=== PATIENT | male | born 1950 | race African-American/Black ===

== ENCOUNTER 2017-07-10 14:46 | Emergency (ER) | payer BC, OTHER ==
[2017-07-10 15:09] VITALS: BP 150/94; PULSE 84; TEMP 98.4; BMI 25.1
--- NOTE | 2017-07-10 15:18 | PDOC ---
History of Present Illness - General Chief Complaint: Pain Stated Complaint: ABD PAIN Time Seen by Provider: 07/10/17 15:17 History Source: Patient - History of Present Illness Timing/Duration: reports: intermittent Past History - Past Medical History Allergies/Adverse Reactions: Allergies Allergy/AdvReac Type Severity Reaction Status Date / Time No Known Allergies Allergy Verified 07/10/17 15:09 Home Medications: Ambulatory Orders Losartan/Hydrochlorothiazide [Losartan-Hctz 100-25 mg Tab] 1 each PO ASDIR 07/10 Metoprolol Succinate [Toprol Xl] 100 mg PO ASDIR 07/10/17 COPD: No HTN: Yes - Suicide/Smoking/Psychosocial Hx Smoking History: Never smoked Have you smoked in the past 12 months: No Information on smoking cessation initiated: No Hx Alcohol Use: No Drug/Substance Use Hx: No Substance Use Type: None Review of Systems - Review of Systems Constitutional: No: Chills, Fever, Unexplained wgt Loss ABD/GI: No: Constipated, Diarrhea, Nausea, Vomiting *Physical Exam - Vital Signs Last Vital Signs Temp Pulse Resp BP Pulse Ox 98.4 F 84 17 150/94 100 07/10/17 15:06 07/10/17 15:06 07/10/17 15:06 07/10/17 15:06 07/10/17 15:06 - Physical Exam General Appearance: Yes: Appropriately Dressed. No: Apparent Distress HEENT: positive: Normal Voice Neck: positive: Supple Respiratory/Chest: negative: Respiratory Distress Gastrointestinal/Abdominal: positive: Soft, Hernia (small periumbilical hernia, easily reducible). negative: Tender Integumentary: positive: Dry, Warm Neurologic: positive: Fully Oriented, Alert, Normal Mood/Affect Medical Decision Making - Medical Decision Making 07/10/17 15:43 67-year-old male history of hypertension, known umbilical hernia x years, here for evaluation of hernia. Patient states he has intermittent discomfort to site of hernia but admits that discomfort has been present "for a long time". No change today and unclear as to why patient presented to the ED. Denies nausea, vomiting, change in bowel movements, fever or chills. Patient well- appearing and stable with small easily reducible umbilical hernia in ED. As no evidence of incarceration/strangulation at this time, will discharge patient with close surgery follow-up *DC/Admit/Observation/Transfer Diagnosis at time of Disposition: Umbilical hernia Qualifiers: Obstruction and gangrene presence: without obstruction or gangrene Qualified Code(s): K42.9 - Umbilical hernia without obstruction or gangrene - Discharge Dispostion Disposition: HOME Condition at time of disposition: Good - Referrals Referrals: Eleazar Lima MD [Primary Care Provider] - Rikki Alvarez MD [Staff Physician] - - Patient Instructions Printed Discharge Instructions: Abdominal Hernia Additional Instructions: You have umbilical hernia that is easily reducible. There is no indication for intervention at this time such as surgery. If symptoms worsen such as severe pain, nausea, vomiting, or constipation. Return to ER immediately, otherwise follow-up with Dr. Alvarez of surgery - Post Discharge Activity
== END 2017-07-10 15:50 | disposition home or self-care (01) ==
LOC: JERFT 14:46
DX: K42.9 Umbilical hernia without obstruction or gangrene (principal); I10 Essential (primary) hypertension
CPT/HCPCS: 99281-25

== ENCOUNTER 2020-12-13 05:22 | Day surgery (SDC) | payer BC ==
[2020-12-11 09:00] VITALS: BMI 26.2
[2020-12-13 12:12] VITALS: TEMP 97.1
[2020-12-13 12:40] VITALS: PULSE 66
[2020-12-13 13:26] VITALS: BP 131/78
== END 2020-12-13 13:13 | disposition home or self-care (01) ==
LOC: JASU-ENDO 05:22
PROVIDERS: ATTEND Internal Medicine Gastroenterology
PROC: 0DJD8ZZ Inspection of Lower Intestinal Tract, Via Natural or Artificial Opening Endoscopic (ICD-10-PCS; principal; 2020-12-13 12:00)
DX: Z12.11 Encounter for screening for malignant neoplasm of colon (principal); K63.89 Other specified diseases of intestine